=== PATIENT | male | born 1980 | race Caucasian/White ===

== ENCOUNTER 2020-03-03 08:00 | Outpatient (RCR) | payer OTHER, SELFPAY | END 2020-03-03 10:00 | disposition home or self-care (01) | LOC: PT.CARL 08:00 | PROVIDERS: Visit Provider Orthopaedic Surgery | DX: M25.572 Pain in left ankle and joints of left foot (principal); S93.402A Sprain of unspecified ligament of left ankle, initial encounter | CPT/HCPCS: 97010; 97014; 97033; 97110; 97112; 97163; G0283 ==